=== PATIENT | female | born 1980 | race Caucasian/White ===

== ENCOUNTER 2016-11-12 14:51 | Inpatient (IN) | payer MEDICAID ==
[~2016-11-12] VITALS: Ht 177.8 cm; Wt 114.0 kg
[2016-11-12] MEDS ORDERED: SODIUM CHLORIDE 0.9% 1,000 ML IVB ONE (15:35)
[2016-11-12] MEDS ORDERED: LORazepam 2MG/ML-1ML VIAL ONE (16:00)
[2016-11-12 16:07] LABS: Basophils # (auto) 0 uL; Basophils % (auto) 0.3 % (0.0-2.0); DEFINITIVE VIEW TRANSMISSION; Eosinophils # (auto) 0.2 uL; Eosinophils % (auto) 3.4 % (0.0-7.0); Hematocrit 40.8 % (36.0-46.0); Hemoglobin 13.4 g/dL (12.2-16.2); Lymphocytes # (auto) 1.8 uL; Lymphocytes % (auto) 24.7 % (10.0-50.0); Mean Corpuscular Hemoglobin 26.9 pg (28.0-32.0); Mean Corpuscular Hgb Conc. 32.7 g/dL (32.0-36.0); Mean Corpuscular Volume 82.3 fL (80.0-100.0); Mean Platelet Volume 8.4 fL (7.4-10.4); Monocytes # (auto) 0.7 uL; Monocytes % (auto) 9.5 % (0.0-12.0); Neutrophils # (auto) 4.5 uL; Neutrophils % (auto) 62.1 % (37.0-80.0); Platelet Count (auto) 274 10^3/uL (140-450); Red Cell Distribution Width 16.3 % (11.6-16.0); White Blood Cell 7.3 10^3/uL (4.4-10.8)
[2016-11-12] MEDS ORDERED: LORazepam 2MG/ML-1ML VIAL IV ONE (16:15)
[2016-11-12 16:21] LABS: INR 0.98 (0.9-1.15); Partial Thromboplastin Time 25.9 sec (22.64-33.71); Prothrombin Time 10.7 sec (9.37-12.3)
[2016-11-12 16:37] LABS: Albumin 3.2 g/dL (3.4-5.0); BUN/Creatinine Ratio 13.8; Calcium 8.4 mg/dL (8.5-10.1); Magnesium 2.2 mg/dL (1.6-2.6); Potassium 3.9 mmol/L (3.5-5.1)
[2016-11-12 16:40] LABS: Bilirubin, Total 0.5 mg/dL (0.2-1.0); Total Protein 6.9 g/dL (6.4-8.2)
[2016-11-12 18:02] LABS: Urine RBC None Seen /hpf (0 - 4)
[2016-11-12] MEDS ORDERED: VALPROATE INJ 1,000 MG in SODIUM CHL 0.9% 100 ML IV ONE (18:45)
[2016-11-12 18:48] LABS: Urine Bilirubin Negative (Negative); Urine Blood Negative /uL (Negative); Urine Color Yellow (Yellow); Urine Glucose Normal (Normal); Urine Ketone Negative (Negative); Urine Nitrite Negative (Negative); Urine Squamous Epithelial Cell FEW /hpf (<5); Urine Urobilinogen Normal (Negative); Urine pH 7.5 (5.0-8.0)
[2016-11-12] MEDS ORDERED: ACETAMINOPHEN 325 MG TAB PO ONE ×2 (18:55→19:00)
[2016-11-12] MEDS: SODIUM CHLORIDE 0.9% 1,000 ML IV SCH (19:43)
[2016-11-12] MEDS ORDERED: MIRT30TA3 PO (19:43)
[2016-11-12] MEDS ORDERED: DIVA500T7 PO (19:43)
[2016-11-12] MEDS ORDERED: RISP2TAB62 PO (19:43)
[2016-11-12] MEDS ORDERED: HYDROcodone-ACET 5/325MG TAB PO PRN (19:45)
[2016-11-12] MEDS ORDERED: MORPHINE SULF INJ 2 MG/ML SYRINGE 1ML IV PRN (19:45)
[2016-11-12] MEDS ORDERED: DOCUSATE SOD 100 MG CAP PO PRN (19:45)
[2016-11-12] MEDS ORDERED: ONDANSETRON HCL 4 MG/2 ML VIAL IV PRN (19:45)
[2016-11-12 21:10] VITALS: BP 112/53
[2016-11-12 22:10] VITALS: BP 112/53
[2016-11-12] MEDS: MIRTAZAPINE 30 MG TAB PO SCH (22:20)
[2016-11-12] MEDS: risperiDONE 1 MG TAB PO SCH (22:20)
[2016-11-12] MEDS ORDERED: LORazepam 2MG/ML-1ML VIAL IV PRN (23:45)
[2016-11-13] VITALS (7 sets, daily range): BP systolic 86–136; BP diastolic 47–98
[2016-11-13] MEDS: SODIUM CHLORIDE 0.9% 1,000 ML IV SCH (12:31)
[2016-11-13] MEDS ORDERED: LEVETIRACETAM INJ 1,000 MG in SODIUM CHL 0.9% 100 ML IV ONE (13:15)
[2016-11-13] MEDS ORDERED: LORazepam 2MG/ML-1ML VIAL IV PRN ×2 (16:34)
[2016-11-13] MEDS: LEVETIRACETAM INJ 500 MG in SODIUM CHL 0.9% 100 ML IV SCH (22:17)
[2016-11-13] MEDS: risperiDONE 1 MG TAB PO SCH (22:44)
[2016-11-13] MEDS: MIRTAZAPINE 30 MG TAB PO SCH (22:44)
[2016-11-14] VITALS: BP 131/70
[2016-11-14] MEDS: SODIUM CHLORIDE 0.9% 1,000 ML IV SCH
[2016-11-14 04:00] VITALS: BP 164/69
[2016-11-14 04:37] LABS: Basophils # (auto) 0 uL; Basophils % (auto) 0.6 % (0.0-2.0); Eosinophils # (auto) 0.3 uL; Eosinophils % (auto) 3.3 % (0.0-7.0); Hematocrit 36.9 % (36.0-46.0); Hemoglobin 12.3 g/dL (12.2-16.2); Lymphocytes # (auto) 2.5 uL; Lymphocytes % (auto) 31.4 % (10.0-50.0); Mean Corpuscular Hemoglobin 27.6 pg (28.0-32.0); Mean Corpuscular Hgb Conc. 33.3 g/dL (32.0-36.0); Mean Corpuscular Volume 82.8 fL (80.0-100.0); Mean Platelet Volume 8.1 fL (7.4-10.4); Monocytes # (auto) 0.6 uL; Monocytes % (auto) 8.1 % (0.0-12.0); Neutrophils # (auto) 4.4 uL; Neutrophils % (auto) 56.6 % (37.0-80.0); Platelet Count (auto) 270 10^3/uL (140-450); Red Cell Distribution Width 16.3 % (11.6-16.0); White Blood Cell 7.8 10^3/uL (4.4-10.8)
[2016-11-14 04:55] VITALS: BP 110/53
[2016-11-14 05:23] LABS: BUN/Creatinine Ratio 18.3; Calcium 8.2 mg/dL (8.5-10.1); Magnesium 1.9 mg/dL (1.6-2.6)
[2016-11-14 07:53] VITALS: BP 109/82
[2016-11-14] MEDS: LEVETIRACETAM INJ 500 MG in SODIUM CHL 0.9% 100 ML IV SCH (09:53)
[2016-11-14 12:38] VITALS: BP 103/61
== END 2016-11-14 14:00 | disposition home or self-care (01) | DRG 53 ==
LOC: EDBD 14:51 → ER 14:55 → OVERFLOW 14:56 → WEST WING 21:10 → DOU IN ICU 11-13 16:15
PROVIDERS: ADMIT Emergency Medicine; ATTEND Internal Medicine
DX: G40.909 Epilepsy, unspecified, not intractable, without status epilepticus (principal); E88.09 Other disorders of plasma-protein metabolism, not elsewhere classified; F17.200 Nicotine dependence, unspecified, uncomplicated; F31.9 Bipolar disorder, unspecified; F41.9 Anxiety disorder, unspecified; Z82.49 Family history of ischemic heart disease and other diseases of the circulatory system; Z91.14 Patient's other noncompliance with medication regimen; Z90.721 Acquired absence of ovaries, unilateral; Z71.6 Tobacco abuse counseling
CPT/HCPCS: 36415; 51702; 70551; 71010; 80048; 80053; 80164; 81001; 81025; 83735; 84702; 85025; 85610; 85730; 94761; 95819; 96361; 96365; 96375

== ENCOUNTER 2016-11-17 16:46 | Emergency (ER) | payer MEDICAID ==
[~2016-11-17] VITALS: Ht 172.7 cm; Wt 106.1 kg
[~2016-11-17 16:46] MED LIST: DIVA500T7 PO; MIRT30TA3 PO; RISP2TAB62 PO
[2016-11-17 18:12] LABS: Urine Bilirubin Negative (Negative); Urine Blood Negative /uL (Negative); Urine Color Yellow (Yellow); Urine Glucose Normal (Normal); Urine Ketone TRACE (Negative); Urine Mucus MANY (None Seen); Urine Nitrite Negative (Negative); Urine RBC 5 /hpf (0 - 4); Urine Squamous Epithelial Cell FEW /hpf (<5); Urine Urobilinogen Normal (Negative)
[2016-11-17 19:44] LABS: Basophils # (auto) 0.1 uL; Basophils % (auto) 0.5 % (0.0-2.0); Eosinophils # (auto) 0.2 uL; Eosinophils % (auto) 1.4 % (0.0-7.0); Hematocrit 41.6 % (36.0-46.0); Hemoglobin 13.8 g/dL (12.2-16.2); Lymphocytes % (auto) 18.3 % (10.0-50.0); Mean Corpuscular Hemoglobin 27.1 pg (28.0-32.0); Mean Corpuscular Hgb Conc. 33.2 g/dL (32.0-36.0); Mean Corpuscular Volume 81.7 fL (80.0-100.0); Mean Platelet Volume 8.5 fL (7.4-10.4); Monocytes # (auto) 1.2 uL; Monocytes % (auto) 11.2 % (0.0-12.0); Neutrophils # (auto) 7.6 uL; Neutrophils % (auto) 68.6 % (37.0-80.0); Platelet Count (auto) 363 10^3/uL (140-450); Red Cell Distribution Width 16.6 % (11.6-16.0); White Blood Cell 11.1 10^3/uL (4.4-10.8)
[2016-11-17 19:48] LABS: Albumin 4.1 g/dL (3.4-5.0); BUN/Creatinine Ratio 17.5; Calcium 9.3 mg/dL (8.5-10.1); Potassium 3.7 mmol/L (3.5-5.1)
[2016-11-17 20:00] LABS: Bilirubin, Total 1.4 mg/dL (0.2-1.0); Total Protein 8.3 g/dL (6.4-8.2)
[2016-11-18 00:41] VITALS: BP 138/65
== END 2016-11-18 04:01 | disposition home or self-care (01) ==
LOC: ER 17:00
DX: G40.909 Epilepsy, unspecified, not intractable, without status epilepticus (principal); F15.10 Other stimulant abuse, uncomplicated; F17.210 Nicotine dependence, cigarettes, uncomplicated
CPT/HCPCS: 36415; 80053; 80164; 80307; 81001; 85025

== ENCOUNTER 2017-04-25 19:41 | Emergency (ER) | payer MEDICAID ==
[~2017-04-25] VITALS: Ht 165.1 cm; Wt 104.3 kg
[2017-04-25 20:49] LABS: Basophils # (auto) 0.1 uL; Basophils % (auto) 0.6 % (0.0-2.0); Eosinophils # (auto) 0.3 uL; Eosinophils % (auto) 3.2 % (0.0-7.0); Hematocrit 35.3 % (36.0-46.0); Hemoglobin 11.5 g/dL (12.2-16.2); Lymphocytes # (auto) 2.7 uL; Lymphocytes % (auto) 25.1 % (10.0-50.0); Mean Corpuscular Hgb Conc. 32.7 g/dL (32.0-36.0); Mean Corpuscular Volume 82.8 fL (80.0-100.0); Mean Platelet Volume 7.6 fL (6.9-10.8); Monocytes % (auto) 9.5 % (0.0-12.0); Neutrophils # (auto) 6.5 uL; Neutrophils % (auto) 61.6 % (37.0-80.0); Platelet Count (auto) 278 10^3/uL (140-450); Red Cell Distribution Width 15.4 % (11.8-14.3); White Blood Cell 10.6 10^3/uL (4.4-10.8)
[2017-04-25 21:05] LABS: Albumin 3.4 g/dL (3.4-5.0); BUN/Creatinine Ratio 14.8; Bilirubin, Total 0.3 mg/dL (0.2-1.0); Calcium 8.7 mg/dL (8.5-10.1); Potassium 3.8 mmol/L (3.5-5.1); Total Protein 6.3 g/dL (6.4-8.2)
[2017-04-25] MEDS ORDERED: SODIUM CHLORIDE 0.9% 1,000 ML IV ONE ×2 (21:16)
[2017-04-25] MEDS ORDERED: LORazepam 2MG/ML-1ML VIAL IV ONE (21:30)
[2017-04-25] MEDS ORDERED: NALBUPHINE HCL 10 MG/1ml INJECTION IV ONE (21:30)
[2017-04-26 01:30] VITALS: BP 115/69
== END 2017-04-26 02:06 | disposition home or self-care (01) ==
LOC: ER 19:41 → EDBD 19:41 → ER 04-26 01:35
DX: G40.909 Epilepsy, unspecified, not intractable, without status epilepticus (principal); R53.1 Weakness; R42 Dizziness and giddiness; F17.210 Nicotine dependence, cigarettes, uncomplicated; T42.75XA Adverse effect of unspecified antiepileptic and sedative-hypnotic drugs, initial encounter; Y92.89 Other specified places as the place of occurrence of the external cause
CPT/HCPCS: 36415; 70450; 80053; 80164; 85025; 93005; 96361; 96374; 96375; 99285; J2060; J2300; J7030